=== PATIENT | female | born 1995 | race Caucasian/White ===

== ENCOUNTER 2021-10-07 04:55 | Emergency (ER) | payer MEDICAID, OTHER ==
[2021-10-07] MEDS ORDERED: Acetaminophen 500 MG TAB ONE (05:23)
[2021-10-07] MEDS ORDERED: Ondansetron PF 4 MG/2 ML Vial ONE ×2 (05:23)
[2021-10-07 06:02] LABS: Bilirubin Neg (Negative); Blood, Urine 10 (Negative); Clarity Cloudy (Clear); Glucose, Urine (Dipstick) Normal (Negative); Ketone, Urine 5 mg/dL (Negative); Leukocyte 25 (Negative); Nitrite Negative (Negative); Protein, Urine (Dipstick) 30 mg/dl (Neg-Trace); Specific Gravity, Urine 1.025 (1.002-1.036)
[2021-10-07 06:07] LABS: ALT (SGPT) 16 U/L (8-55); AST (SGOT) 16 U/L (5-34); Albumin 3.8 g/dL (3.5-5.0); Alkaline Phosphatase 53 U/L (40-110); Anion Gap 16 mmol/L (10-20); BUN (Urea Nitrogen) 6 mg/dL (7.0-18.7); Bilirubin, Total 0.5 mg/dL (0.2-1.2); Calc. Creatinine Clearance 0 mL/min (70-130); Calcium 9.1 mg/dL (7.8-10.44); Carbon Dioxide 16 mmol/L (22-29); Chloride 107 mmol/L (98-107); Globulin 3.3 g/dL (2.4-3.5); Glucose 120 mg/dL (70-105); Potassium 4.1 mmol/L (3.5-5.1); Protein, Total 7.1 g/dL (6.0-8.3); Sodium 135 mmol/L (136-145)
[2021-10-07 06:14] LABS: WBC/HPF 0-3 HPF (0-3)
[2021-10-07 06:16] LABS: Bacteria/HPF Rare-Few HPF (None Seen)
[2021-10-07 06:45] LABS: #Monocytes 0.4 10x3/uL (0.0-1.1); #Neutrophils 7.2 10x3/uL (1.5-8.4); %Basophils 0.4 % (0.0-2.0); %Eosinophils 0.2 % (0.0-6.0); %Lymphocytes 3.2 % (18.0-47.0); %Monocytes 5.2 % (0.0-10.0); %Neutrophils 89.3 % (40.0-75.0); Hemoglobin 14.9 g/dL (12.0-15.5); Mean Corpuscular HGB CONC 35.5 g/dL (32.0-36.0); Mean Corpuscular Hemoglobin 28.9 pg (27.0-33.0); Mean Corpuscular Volume 81.4 fl (81.6-98.3); Mean Platelet Volume 9.8 fl (7.4-10.4); Platelet Count 179 10x3/uL (150-450); RBC Distribution Width 13.3 % (11.5-14.5); Red Blood Cell (RBC) Count 5.16 10x6/uL (3.90-5.03); White Blood Cell (WBC) Count 8.1 10x3/uL (3.5-10.5)
== END 2021-10-07 08:17 | disposition home or self-care (01) ==
LOC: CSHERS 04:55
DX: O99.511 Diseases of the respiratory system complicating pregnancy, first trimester (principal); J10.1 Influenza due to other identified influenza virus with other respiratory manifestations; O99.281 Endocrine, nutritional and metabolic diseases complicating pregnancy, first trimester; E86.0 Dehydration; Z3A.16 16 weeks gestation of pregnancy
CPT/HCPCS: 80053; 81003; 81015; 83605; 85025; 87804; 96374; J2405

== ENCOUNTER 2022-03-12 23:35 | Inpatient (IN) | payer OTHER ==
[2022-03-13 00:03] VITALS: BMI 49.8
[2022-03-13 00:21] LABS: Fetal Membranes Rupture RUPTURE DETECTED (No Rupture)
[2022-03-13] MEDS ORDERED: hydrALAZINE 20 MG/ML VIAL SLOW IVP PRN ×2 (02:07→17:12)
[2022-03-13] MEDS ORDERED: Promethazine HCl 25 MG/ML VIAL IM PRN ×2 (02:07→06:08)
[2022-03-13] MEDS ORDERED: Lidocaine 1% (PF) 30 ML VIAL SC PRN (02:07)
[2022-03-13] MEDS ORDERED: Ondansetron PF 4 MG/2 ML Vial IVP PRN ×2 (02:07→06:08)
[2022-03-13] MEDS ORDERED: Ibuprofen 800 MG TAB PO PRN (02:07)
[2022-03-13] MEDS ORDERED: Calcium Carbonate 500 MG ChewTAB PO SCH ×2 (02:15→09:30)
[2022-03-13 02:35] LABS: Mean Corpuscular HGB CONC 34.1 g/dL (32.0-36.0); Mean Corpuscular Hemoglobin 26.8 pg (27.0-33.0); Mean Corpuscular Volume 78.6 fl (81.6-98.3); Mean Platelet Volume 11.7 fl (7.4-10.4); Platelet Count 184 10x3/uL (150-450); RBC Distribution Width 13.3 % (11.5-14.5); Red Blood Cell (RBC) Count 4.48 10x6/uL (3.90-5.03); White Blood Cell (WBC) Count 10.5 10x3/uL (3.5-10.5)
[2022-03-13 03:05] LABS: Hep B Surf Ag Non-Reactive S/CO (NonReactive)
[2022-03-13 03:10] LABS: HBSAg Index 0.19 S/CO (0-0.99)
[2022-03-13] MEDS ORDERED: Fentanyl 2 mcg/Bup 0.1% Cadd 100 ML ONE ×2 (03:14→12:41)
[2022-03-13 03:54] LABS: Syphilis Antibody Nonreactive (Nonreactive); Syphilis Antibody Index 0.03 S/CO (<1.00 Non-Reactive)
[2022-03-13] MEDS ORDERED: Butorphanol Tartrate 1 MG/ML VIAL ONE (04:49)
[2022-03-13] MEDS ORDERED: Moisturizing Cream (Eucerin) 113 GM JAR TOP PRN (06:08)
[2022-03-13] MEDS ORDERED: Naloxone HCl 0.4 mg/ml Vial IVP PRN ×2 (06:08)
[2022-03-13] MEDS ORDERED: Acetaminophen 325 MG TAB PO PRN (06:08)
[2022-03-13] MEDS ORDERED: diphenhydrAMINE 50 MG/ML VIAL IVP PRN (06:08)
[2022-03-13] MEDS ORDERED: ePHEDrine Sulfate 50 MG/10 ML VIAL SLOW IVP PRN (06:08)
[2022-03-13] MEDS ORDERED: Lactated Ringer's 500 ML IV PRN (06:08)
[2022-03-13] MEDS ORDERED: Fentanyl 2 mcg/Bupivacaine 0.1% Cassette 100 ML EPIDURAL SCH (06:15)
[2022-03-13] MEDS ORDERED: Communication Order-Pharmacy FS SCH (06:15)
[2022-03-13] MEDS ORDERED: Bupivacaine HCl 0.5%/Epinephrine 1:200,000/PF 30 ml Vial ONE (08:00)
[2022-03-13 08:08] LABS: SARS-CoV-2 NAA Rapid Test Not Detected (NotDetected)
[2022-03-13] MEDS ORDERED: Lidocaine 1% PF 5 ML VIAL ONE (08:14)
[2022-03-13 10:34] LABS: ALT (SGPT) Less than 6 U/L (8-55); AST (SGOT) 16 U/L (5-34); Albumin 2.9 g/dL (3.5-5.0); Alkaline Phosphatase 105 U/L (40-110); Anion Gap 16 mmol/L (10-20); BUN (Urea Nitrogen) 8 mg/dL (7.0-18.7); Bilirubin, Total 0.3 mg/dL (0.2-1.2); Calc. Creatinine Clearance 225 mL/min (70-130); Calcium 8.5 mg/dL (7.8-10.44); Carbon Dioxide 15 mmol/L (22-29); Chloride 110 mmol/L (98-107); Estimated GFR 107; Globulin 2.6 g/dL (2.4-3.5); Glucose 90 mg/dL (70-105); Potassium 4.4 mmol/L (3.5-5.1); Protein, Total 5.5 g/dL (6.0-8.3); Sodium 137 mmol/L (136-145)
[2022-03-13 10:42] LABS: Creatinine, Urine 155.35 mg/dL (47-110)
[2022-03-13 13:07] LABS: HIV (1/2) Antibody/Antigen Non-Reactive (NonReactive); HIV 1/2 INDEX 0.06 S/CO (<1.00)
[2022-03-13] MEDS ORDERED: Fentanyl 100 MCG/2 ML VIAL ONE (14:32)
[2022-03-13] MEDS: NS w/ Oxytocin 30 units 500 ML IV SCH ×2 (14:50→17:28)
[2022-03-13] MEDS ORDERED: Methylergonovine 0.2 MG/ML VIAL ONE (16:35)
[2022-03-13] MEDS ORDERED: Misoprostol 200 MCG TAB ONE (16:35)
[2022-03-13] MEDS ORDERED: Carboprost 250 MCG/ML AMP ONE (16:36)
[2022-03-13] MEDS ORDERED: Benzocaine-Menthol 82.5 ML CAN TOP PRN (17:12)
[2022-03-13] MEDS ORDERED: Milk Of Magnesia 30 ML UDCUP PO PRN (17:12)
[2022-03-13] MEDS ORDERED: Misoprostol 200 MCG TAB VAG PRN (17:12)
[2022-03-13] MEDS ORDERED: diphenhydrAMINE 25 MG CAP PO PRN (17:12)
[2022-03-13] MEDS ORDERED: Bisacodyl 10 MG SUPP PR PRN (17:12)
[2022-03-13] MEDS ORDERED: traMADol HCl 50 MG TAB PO PRN (21:00)
[2022-03-13] MEDS: Docusate 100 MG CAP PO SCH (21:01)
[2022-03-13] MEDS: Ibuprofen 800 MG TAB PO SCH (21:01)
[2022-03-14] MEDS: Ibuprofen 800 MG TAB PO SCH ×2 (05:36→14:05)
[2022-03-14] MEDS ORDERED: Prenatal Vitamin 1 TAB PO SCH (09:00)
[2022-03-14] MEDS: Ferrous Sulfate 325 MG TAB PO SCH ×2 (09:21→09:24)
[2022-03-14] MEDS: Docusate 100 MG CAP PO SCH (10:22)
[2022-03-14] MEDS ORDERED: Boostrix 0.5 ML (Tdap) VIAL IM ONE (17:12)
[2022-03-14 23:12] VITALS: BP 136/84; TEMP 97.7
== END 2022-03-14 20:50 | disposition home or self-care (01) | DRG 807 ==
LOC: CSHLD/OP 23:35 → CSHLD 03-13 00:41 → CSHPP 03-13 19:25
PROVIDERS: ADMIT Obstetrics & Gynecology; ATTEND Obstetrics & Gynecology
PROC: 10E0XZZ Delivery of Products of Conception, External Approach (ICD-10-PCS; principal; 2022-03-13)
DX: O42.02 Full-term premature rupture of membranes, onset of labor within 24 hours of rupture (principal); Z37.0 Single live birth; O34.211 Maternal care for low transverse scar from previous cesarean delivery; Z3A.38 38 weeks gestation of pregnancy; F41.9 Anxiety disorder, unspecified; Z79.899 Other long term (current) drug therapy; F32.A Depression, unspecified; O99.344 Other mental disorders complicating childbirth; Z20.822 Contact with and (suspected) exposure to COVID-19; E66.9 Obesity, unspecified; O99.214 Obesity complicating childbirth; Z91.14 Patient's other noncompliance with medication regimen
CPT/HCPCS: 36415; 51702; 80053; 82570; 83615; 84112; 84156; 85027; 86780; 86850; 86900; 86901; 87340; 87389; 99285; J0595; J2405; J2590; U0002